=== PATIENT | male | born 1975 | race Caucasian/White ===

== ENCOUNTER 2018-04-03 11:58 | Day surgery (SDC) | payer BC ==
[2018-03-25 14:30] VITALS: BMI 45.6
[2018-04-03] MEDS ORDERED: BUPIVACAINE HCL 0.25% 125 MG/50 ML VIAL ONE (14:44)
[2018-04-03] MEDS ORDERED: MIDAZOLAM HCL 2 MG/2 ML SINGLE DOSE VIAL ONE ×3 (14:56→15:26)
[2018-04-03] MEDS ORDERED: BUPIVACAINE HCL/PF 0.5% (5MG/ML) 10 ML VIAL ONE (15:00)
[2018-04-03] MEDS ORDERED: ceFAZolin SODIUM 1 GM VIAL ONE (15:13)
--- NOTE | 2018-04-03 16:09 | OP ---
Operative Note - Note: Operative Date: 04/03/18 Pre-Operative Diagnosis: right knee MMT Operation: right knee partial medial meniscectomy Post-Operative Diagnosis: Same as Pre-op Surgeon: Omid Ingram Anesthesiologist/HVAC ENGINEER: Naseem Reno Anesthesia: Spinal Operative Report Dictated: Yes
[2018-04-03 16:58] VITALS: TEMP 98.1
[2018-04-03] MEDS ORDERED: ONDANSETRON 4 MG/2 ML VIAL IVPUSH PRN (16:58)
[2018-04-03] MEDS ORDERED: oxyCODONE HCL 5 MG TABLET PO PRN ×2 (16:58)
[2018-04-03] MEDS ORDERED: LACTATED RINGERS SOLUTION 1,000 ML IV SCH (17:15)
--- NOTE | 2018-04-03 17:29 | OP ---
DATE OF OPERATION: 04/03/2018 PREOPERATIVE DIAGNOSIS: Right knee medial meniscal tear. POSTOPERATIVE DIAGNOSIS: Right knee medial meniscal tear. PROCEDURE: Right knee arthroscopy with partial medial meniscectomy. SURGEON: Omid Alegria MD ANESTHESIA: Spinal. POSTOPERATIVE CONDITION: Stable. COMPLICATIONS: None. INDICATIONS: This is a pleasant gentleman who has been suffering from knee pain. He was found to have a medial meniscal tear on MRI. Treatment options including nonoperative versus operative measures were reviewed. Operative risks were reviewed including bleeding, infection, neurovascular injury, need for further surgery, postoperative pain and stiffness, and progression of osteoarthritis. We discussed medical risks such as heart attack, stroke, DVT, PE, and . I addressed all the patient's questions. He voiced understanding and elected to proceed. DESCRIPTION OF PROCEDURE: The patient was brought to the operating room where spinal anesthesia was administered. He was placed supine on the operating table. The right lower extremity was then prepped and draped in the usual sterile fashion. A preoperative dose of antibiotics was given, and the usual timeout procedure was performed. The port sites were now marked out and injected subcutaneously with 0.25% Marcaine. An 11 blade was now used to create an incision. The arthroscope was now passed into the knee. Examination of the patellofemoral joint demonstrates some partial thickness fraying on the patellar side and high-grade partial thickness on the trochlear side. The arthroscope was passed into the notch. ACL and PCL were seen to be intact. The arthroscope was now passed into the medial compartment. A medial portal was established with spinal needle . There was a parrot beak type tear in the posterior horn extending to the body of the medial meniscus. There was partial thickness chondral loss along the femoral and tibial surfaces. Utilizing meniscal biters as well as the shaver, this was debrided down to a stable base. The arthroscope was now passed to the lateral compartment. Here, there were only slight mild degenerative chondral changes and no meniscal tear seen. Viscus was probed and found to be stable. The arthroscope was then passed back to patellofemoral joint. The access fluid was drawn from the joint. The portals were sutured using 3-0 nylon. Sterile dressings were placed. The patient was transferred to recovery room in stable condition. OMID ALEGRIA M.D. [id number]
[2018-04-03 17:46] VITALS: BP 132/85; PULSE 91
== END 2018-04-03 17:40 | disposition home or self-care (01) ==
LOC: FASU 11:58
PROVIDERS: ATTEND Orthopaedic Surgery Sports Medicine
PROC: 0SBC4ZZ Excision of Right Knee Joint, Percutaneous Endoscopic Approach (ICD-10-PCS; principal; 2018-04-03 15:29)
DX: S83.241A Other tear of medial meniscus, current injury, right knee, initial encounter (principal); X58.XXXA Exposure to other specified factors, initial encounter; Y93.9 Activity, unspecified; Y92.9 Unspecified place or not applicable
CPT/HCPCS: 82962; 94760